=== PATIENT | female | born 1995 | race American Indian/Alaskan Native ===

== ENCOUNTER 2020-01-05 11:14 | Inpatient (IN) | payer OTHER ==
[2020-01-05 12:02] LABS: HCG Qualitative,Urine Negative (Negative)
[2020-01-05 12:07] LABS: Bilirubin,Urine NEG (Negative); Blood,Urine MOD (Negative); Color,Urine Amber (Yellow); Granular Casts,Urine 12 /LPF; Hyaline Casts,Urine 1 /LPF; Mucus,Urine 1+ /HPF; Protein,Urine >500 mg/dL (Negative)
--- NOTE | 2020-01-05 12:41 | Event Note ---
ED Screening Note Date of service: 01/05/20 Time: 12:39 ED Screening Note: This 24-year-old female presents with right lower quadrant pain and pain with defecation this morning. Last menstrual. Past week. This initial assessment/diagnostic orders/clinical plan/treatment(s) is/are subject to change based on patients health status, clinical progression and re- assessment by fellow clinical providers in the ED. Further treatment and workup at subsequent clinical providers discretion. Patient/guardian urged not to elope from the ED as their condition may be serious if not clinically assessed and managed. Initial orders include: CBC, CMP, UA, UPT, CT abdomen
--- NOTE | 2020-01-05 13:14 | Cat Scan Report ---
CT abdomen pelvis wo con INDICATION: R.L.Q. abdominal pain. COMPARISON: None TECHNIQUE: Abdominal and pelvic CT exam performed. All CT scans at this location are performed using CT dose reduction for ALARA by means of automated exposure control. FINDINGS: CT ABDOMEN and PELVIS: Lung Bases: No significant abnormality. Liver: No significant abnormality. Biliary: No significant abnormality. Spleen: No significant abnormality. Pancreas: No significant abnormality. Adrenals: No significant abnormality. Kidneys: No significant abnormality. Lymphatics: No lymphadenopathy. Vasculature: No significant abnormality. Bowel/Peritoneum: The appendix is dilated and there is periappendiceal inflammation. There is a large periappendiceal collection measuring 5.3 x 5 x 4.5 cm. There is a little focus of gas seen along the superior aspect of the collection on image 65 of series 602. Pelvis: No significant abnormality. Osseous Structures: No aggressive osseous lesion. Additional Findings: None IMPRESSION: 1. Appendicitis with a 5.3 cm periappendiceal collection concerning for abscess. Small focus of gas s een along the superior aspect of collection could be related to microrupture. Signer Name: Gorge Burton MD Signed: 01/05/2020 1:10 PM Workstation Name: [id number]
[2020-01-05] MEDS ORDERED: PIPERACIL/TAZOBACTA 4.5/NS 100 4.5 GM/100 ML VIAL IV ONE (13:31)
[2020-01-05] MEDS ORDERED: SODIUM CHLORIDE 0.9% 1000 ML 1,000 ML IV ONE (13:31)
[2020-01-05] MEDS ORDERED: MORPHINE 4 MG/1 ML INJ IV ONE (13:31)
[2020-01-05] MEDS ORDERED: ONDANSETRON 4 MG/2 ML INJ IV ONE (13:31)
[2020-01-05 13:39] LABS: Basophils % (Auto) 0.3 % (0.0-1.8); Eosinophils % (Auto) 0.3 % (0.0-4.3); Hematocrit 38.1 % (30.3-42.9); Hemoglobin 12.5 gm/dl (10.1-14.3); Lymphocytes # (Auto) 1.1 K/mm3 (1.2-5.4); Mean Corpuscular HGB Conc 33 % (30-34); Mean Corpuscular Volume 86 fl (79-97); Monocytes # (Auto) 1.2 K/mm3 (0.0-0.8); Monocytes % (Auto) 8.7 % (0.0-7.3); Platelet Count 326 K/mm3 (140-440); Red Blood Count 4.44 M/mm3 (3.65-5.03); Red Cell Distribution Width 13.3 % (13.2-15.2)
[2020-01-05] MEDS ORDERED: ACETAMINOPHEN 500 MG TAB PO ONE (13:45)
--- NOTE | 2020-01-05 14:10 | History and Physical Report ---
History of Present Illness Chief complaint: My stomach hurts History of present illness: 24 YO Female with No PMH presents to ED for evaluation. The patient states that she had experienced abdominal pain over the past 5 days with progressively worsening symptoms over the past 2 days. Patient states that her pain is currently 10/10, localized to the right lower quadrant, constant, cramping in nature, nonradiating, not worsened with exertion, not relieved with rest. Patient transported to [facility] via private vehicle for further care and evaluation of the aforementioned symptoms. Patient seen and evaluated in the emergency department. Lab and imaging studies reviewed. Patient underwent CT scan of the abdomen and pelvis which revealed evidence of acute appendicitis complicated by intra-abdominal abscess, systemic ventilatory response syndrome. Surgical team consulted in ED. Patient initiated on IV antibiotic therapy and admitted to surgical floor due to increased risk of decompensation. Intervention radiology team consulted in ED. Patient denies fever, chills, chest pain, palpitations, productive cough, skin rash, recent ill contacts, bright red blood per rectum, melena, hematuria, known exposure to COVID-19. No prior admission for review. No medication listed at time of admission for reconciliation. Past History Past Medical History: No medical history Past Surgical History: No surgical history Social history: single Family history: no significant family history Medications and Allergies Allergies Allergy/AdvReac Type Severity Reaction Status Date / Time No Known Allergies Allergy Unverified 01/05/20 11:17 Home Medications Medication Instructions Recorded Confirmed Last Taken Type No Known Home Medications [No 01/05/20 01/05/20 Unknown History Reported Home Medications] Active Meds: Active Medications Sodium Chloride (Nacl 0.9% 1000 Ml) 1,000 mls @ 999 mls/hr IV BOLUS ONE Stop: 01/05/20 14:31 Last Admin: 01/05/20 13:47 Dose: 999 mls/hr Documented by: Review of Systems Constitutional: no weight loss, no weight gain, no fever, no chills Ears, nose, mouth and throat: no ear pain, no ear discharge, no tinnitis, no decreased hearing, no nose pain Breasts: no change in shape, no swelling, no mass Cardiovascular: no chest pain, no orthopnea, no palpitations, no edema Respiratory: no cough, no cough with sputum, no excessive sputum, no shortness of breath Gastrointestinal: abdominal pain, no nausea, no vomiting, no diarrhea, no constipation, no hematemesis, no coffee ground emesis Genitourinary Female: no pelvic pain, no flank pain, no menorrhagia, no dysuria, no urinary frequency, no urgency Rectal: no pain, no incontinence, no bleeding Musculoskeletal: no neck stiffness, no neck pain, no shooting arm pain, no arm numbness/tingling, no low back pain, no shooting leg pain, no leg num bness/tingling Integumentary: no rash, no pruritis, no redness, no sores, no wounds Neurological: no head injury, no transient paralysis, no paralysis, no weakness, no parathesias, no numbness, no tingling, no seizures Psychiatric: no anxiety, no memory loss, no change in sleep habits, no sleep disturbances, no insomnia, no hypersomnia, no change in appetite, no change in libido Endocrine: no cold intolerance, no heat intolerance, no polyphagia, no excessive thirst, no polydipsia, no polyuria Hematologic/Lymphatic: no easy bruising, no easy bleeding Allergic/Immunologic: no urticaria, no allergic rhinitis, no wheezing Exam - Constitutional Vitals: Temp Pulse Resp BP Pulse Ox 99.3 F 116 H 18 136/72 98 01/05/20 12:39 01/05/20 12:39 01/05/20 13:17 01/05/20 12:39 01/05/20 13:17 General appearance: Present: mild distress - EENT Eyes: Present: PERRL ENT: hearing intact, clear oral mucosa - Neck Neck: Present: supple, normal ROM - Respiratory Respiratory effort: normal Respiratory: bilateral: CTA - Cardiovascular Heart Sounds: Present: S1 & S2. Absent: rub, click - Extremities Extremities: pulses symmetrical, No edema Peripheral Pulses: within normal limits - Abdominal General gastrointestinal: Present: soft, non-tender, non-distended, normal bowel sounds Localized gastrointestinal: tender: RLQ Female genitourinary: Present: normal - Integumentary Integumentary: Present: clear, warm, dry - Musculoskeletal Musculoskeletal: gait normal, strength equal bilaterally - Psychiatric Psychiatric: appropriate mood/affect, intact judgment & insight - Neurologic Neurologic: CNII-XII intact, moves all extremities Results - Labs CBC & Chem 7: 01/05/20 13:05 08/31/20 13:05 Labs: Abnormal lab results 08/31/20 Range/Units 13:05 WBC 13.9 H (4.5-11.0) K/mm3 Lymph % (Auto) 8.0 L (13.4-35.0) % [place] % (Auto) 8.7 H (0.0-7.3) % Lymph # 1.1 L (1.2-5.4) K/mm3 [place] # 1.2 H (0.0-0.8) K/mm3 Seg Neutrophils % 82.7 H (40.0-70.0) % Seg Neutrophils # 11.5 H (1.8-7.7) K/mm3 Assessment and Plan - Patient Problems (1) Appendicitis with abscess Current Visit: Yes Status: Acute Plan to address problem: Surgery team consulted in ED, interventional radiology team consulted in ED, CT scan abdomen and pelvis, serial abdominal exam, IV antibiotic therapy, IV fluid resuscitation therapy, bowel rest, surgical intervention as per surgical team. (2) SIRS (systemic inflammatory response syndrome) Current Visit: Yes Status: Acute Plan to address problem: CBC, CMP, chest x-ray, urinalysis, IV antibiotic therapy, supportive care (3) DVT prophylaxis Current Visit: Yes Status: Acute Plan to address problem: SCD to bilateral lower extremities while in bed, patient is ambulatory
--- NOTE | 2020-01-05 14:14 | Emergency Department Report ---
ED Abdominal Pain HPI - General Chief Complaint: Abdominal Pain Stated Complaint: ABD PAIN Time Seen by Provider: 01/05/20 13:29 Source: patient Mode of arrival: Ambulatory Limitations: No Limitations - History of Present Illness Initial Comments: This is a 24-year-old female nontoxic, well nourished in appearance, no acute signs of distress presents to the ED with c/o of fever, chills, nausea and vomiting and abdominal pain. Patient describes vomiting as food content and yellow gastric acid. Patient describes abdominal pain as cramping and aching with level of 10/10 to RLQ. Patient denies chest pain, short of breath, hemoptysis, blood in stool, headache, stiff neck, numbness or tingling. Patient denies any diarrhea or constipation. Denies any blood in stool. Patient denies any recent travels. Patient denies any allergies or significant PMH. MD Complaint: abdominal pain -: days(s) Location: RLQ Radiation: none Migration to: no migration Severity scale (0 -10): 10 Quality: cramping, aching Consistency: constant Improves With: nothing Worsens With: nothing Associated Symptoms: nausea, vomiting, fever, chills. denies: diarrhea, constipation, dysuria, hematemesis, hematochezia, melena, hematuria, anorexia, syncope - Related Data Home Medications Medication Instructions Recorded Confirmed Last Taken No Known Home Medications [No 01/05/20 01/05/20 Unknown Reported Home Medications] Allergies Allergy/AdvReac Type Severity Reaction Status Date / Time No Known Allergies Allergy Unverified 01/05/20 11:17 ED Review of Systems ROS: Stated complaint: ABD PAIN Other details as noted in HPI Constitutional: chills, fever Eyes: denies: eye pain, eye discharge, vision change ENT: denies: ear pain, throat pain Respiratory: denies: cough, shortness of breath, wheezing Cardiovascular: denies: chest pain, palpitations Endocrine: no symptoms reported Gastrointestinal: abdominal pain, nausea, vomiting. denies: diarrhea Genitourinary: denies: urgency, dysuria, discharge Musculoskeletal: denies: back pain, joint swelling, arthralgia Skin: denies: rash, lesions Neurological: denies: headache, weakness, paresthesias Psychiatric: denies: anxiety, depression Hematological/Lymphatic: denies: easy bleeding, easy bruising ED Past Medical Hx - Past Medical History Previous Medical History?: No - Surgical History Past Surgical History?: No - Social History Smoking Status: Never Smoker Substance Use Type: None - Medications Home Medications: Home Medications Medication Instructions Recorded Confirmed Last Taken Type No Known Home Medications [No 01/05/20 01/05/20 Unknown History Reported Home Medications] ED Physical Exam - General Limitations: No Limitations General appearance: alert, in no apparent distress - Head Head exam: Present: atraumatic, normocephalic - Eye Eye exam: Present: normal appearance - Neck Neck exam: Present: normal inspection, full ROM. Absent: tenderness, meningismus, lymphadenopathy - Respiratory Respiratory exam: Present: normal lung sounds bilaterally. Absent: respiratory distress, wheezes, rales, rhonchi, stridor, chest wall tenderness, accessory muscle use, decreased breath sounds, prolonged expiratory - Cardiovascular Cardiovascular Exam: Present: regular rate, normal rhythm, tachycardia, normal heart sounds. Absent: bradycardia, irregular rhythm, systolic murmur, diastolic murmur, rubs, gallop - GI/Abdominal GI/Abdominal exam: Present: soft, tenderness (RLQ), normal bowel sounds. Absent: distended, guarding, rebound, rigid, diminished bowel sounds - Extremities Exam Extremities exam: Present: normal inspection, full ROM - Back Exam Back exam: Present: normal inspection, full ROM. Absent: tenderness, CVA tenderness (R), CVA tenderness (L), muscle spasm, paraspinal tenderness, vertebral tenderness, rash noted - Neurological Exam Neurological exam: Present: alert, oriented X3, normal gait - Psychiatric Psychiatric exam: Present: normal affect, normal mood - Skin Skin exam: Present: warm, dry, intact, normal color. Absent: rash ED Course Vital Signs 01/05/20 01/05/20 01/05/20 11:20 12:39 13:17 Temperature 100.5 F H 99.3 F Pulse Rate 125 H 116 H Respiratory 16 18 18 Rate Blood Pressure 105/57 136/72 O2 Sat by Pulse 95 99 98 Oximetry - Reevaluation(s) Reevaluation #1: 01/05/20 14:12 Patient is speaking in full sentences with no signs of distress noted. - Consultations Consultation #1: 01/05/20 14:01 Patient has been consulted with Dr. Bright about patient history, physical exam, and labs/CT results and agrees for admission with IR consult. Consultation #2: 01/05/20 14:10 Patient has been consulted with Dr. Garcia about patient history, physical exam, and labs/CT results and accepts patient to services. Consultation #3: 01/05/20 14:29 Patient consulted with Francy Carranza about patient history, physical exam, and CT results and agrees to the ED plan of care and admission. ED Medical Decision Making - Lab Data Result diagrams: 01/05/20 13:05 01/05/20 13:05 Lab Results 01/05/20 01/05/20 Range/Units 13:05 Unknown WBC 13.9 H (4.5-11.0) K/mm3 RBC 4.44 (3.65-5.03) M/mm3 Hgb 12.5 (10.1-14.3) gm/dl Hct 38.1 (30.3-42.9) % MCV 86 (79-97) fl MCH 28 (28-32) pg MCHC 33 (30-34) % RDW 13.3 (13.2-15.2) % Plt Count 326 (140-440) K/mm3 Lymph % (Auto) 8.0 L (13.4-35.0) % [place] % (Auto) 8.7 H (0.0-7.3) % Eos % (Auto) 0.3 (0.0-4.3) % Baso % (Auto) 0.3 (0.0-1.8) % Lymph # 1.1 L (1.2-5.4) K/mm3 [place] # 1.2 H (0.0-0.8) K/mm3 Eos # 0.0 (0.0-0.4) K/mm3 Baso # 0.0 (0.0-0.1) K/mm3 Seg Neutrophils % 82.7 H (40.0-70.0) % Seg Neutrophils # 11.5 H (1.8-7.7) K/mm3 Urine Color [place] (Yellow) Urine Turbidity Hazy (Clear) Urine pH 6.0 (5.0-7.0) Ur Specific [place] 1.026 (1.003-1.030) Urine Protein >500 (Negative) mg/dL Urine Glucose (UA) Neg (Negative) mg/dL Urine Ketones Neg (Negative) mg/dL Urine Blood Mod (Negative) Urine Nitrite Neg (Negative) Ur Reducing Substances Not Reportable Urine Bilirubin Neg (Negative) Urine Ictotest Not Reportable Urine Urobilinogen 2.0 (<2.0) mg/dL Ur Leukocyte Esterase Neg (Negative) Urine WBC (Auto) 4.0 (0.0-6.0) /HPF Urine RBC (Auto) 9.0 (0.0-6.0) /HPF U Epithel Cells (Auto) 7.0 (0-13.0) /HPF Hyaline Casts 1 /LPF Granular Casts 12 /LPF Urine Mucus 1+ /HPF Urine HCG, Qual Negative (Negative) Lab Results 01/05/20 01/05/20 01/05/20 Range/Units 13:05 13:05 Unknown WBC 13.9 H (4.5-11.0) K/mm3 RBC 4.44 (3.65-5.03) M/mm3 Hgb 12.5 (10.1-14.3) gm/dl Hct 38.1 (30.3-42.9) % MCV 86 (79-97) fl MCH 28 (28-32) pg MCHC 33 (30-34) % RDW 13.3 (13.2-15.2) % Plt Count 326 (140-440) K/mm3 Lymph % (Auto) 8.0 L (13.4-35.0) % [place] % (Auto) 8.7 H (0.0-7.3) % Eos % (Auto) 0.3 (0.0-4.3) % Baso % (Auto) 0.3 (0.0-1.8) % Lymph # 1.1 L (1.2-5.4) K/mm3 [place] # 1.2 H (0.0-0.8) K/mm3 Eos # 0.0 (0.0-0.4) K/mm3 Baso # 0.0 (0.0-0.1) K/mm3 Seg Neutrophils % 82.7 H (40.0-70.0) % Seg Neutrophils # 11.5 H (1.8-7.7) K/mm3 Sodium 134 L (137-145) mmol/L Potassium 3.4 L (3.6-5.0) mmol/L Chloride 95.0 L (98-107) mmol/L Carbon Dioxide 24 (22-30) mmol/L Anion Gap 18 mmol/L BUN 11 (7-17) mg/dL Creatinine 1.1 (0.6-1.2) mg/dL Estimated GFR > 60 ml/min BUN/Creatinine Ratio 10 % Glucose 128 H (65-100) mg/dL Calcium 9.4 (8.4-10.2) mg/dL Total Bilirubin 0.50 (0.1-1.2) mg/dL AST 19 (5-40) units/L ALT 21 (7-56) units/L Alkaline Phosphatase 146 H (35-129) units/L Total Protein 7.9 (6.3-8.2) g/dL Albumin 3.7 L (3.9-5) g/dL Albumin/Globulin Ratio 0.9 % Urine Color [place] (Yellow) Urine Turbidity Hazy (Clear) Urine pH 6.0 (5.0-7.0) Ur Specific [place] 1.026 (1.003-1.030) Urine Protein >500 (Negative) mg/dL Urine Glucose (UA) Neg (Negative) mg/dL Urine Ketones Neg (Negative) mg/dL Urine Blood Mod (Negative) Urine Nitrite Neg (Negative) Ur Reducing Substances Not Reportable Urine Bilirubin Neg (Negative) Urine Ictotest Not Reportable Urine Urobilinogen 2.0 (<2.0) mg/dL Ur Leukocyte Esterase Neg (Negative) Urine WBC (Auto) 4.0 (0.0-6.0) /HPF Urine RBC (Auto) 9.0 (0.0-6.0) /HPF U Epithel Cells (Auto) 7.0 (0-13.0) /HPF Hyaline Casts 1 /LPF Granular Casts 12 /LPF Urine Mucus 1+ /HPF Urine HCG, Qual Negative (Negative) - Radiology Data Referring Physician: JAYLA JEAN Patient Name: DAVIN WELCH Date of : 1995 Sex: Female Report Date: 2020-01-05 Report Status: Finalized [facility] [address] [place] [address] Cat Scan Report Signed Patient: DAVIN WELCH MR#: [id number] 37 : 1995 Acct:[id number] Age/Sex: 24 / F ADM Date: 01/05/20 Loc: ED Attending Dr: Ordering Physician: ASHA SCHMIDT Date of Service: 01/05/20 Procedure(s): CT abdomen pelvis wo con Accession Number(s): [id number] cc: ASHA SCHMIDT CT abdomen pelvis wo con INDICATION: R.L.Q. abdominal pain. COMPARISON: None TECHNIQUE: Abdominal and pelvic CT exam performed. All CT scans at this location are performed using CT dose reduction for ALARA by means of automated exposure control. FINDINGS: CT ABDOMEN and PELVIS: Lung Bases: No significant abnormality. Liver: No significant abnormality. Biliary: No significant abnormality. Spleen: No significant abnormality. Pancreas: No significant abnormality. Adrenals: No significant abnormality. Kidneys: No significant abnormality. Lymphatics: No lymphadenopathy. Vasculature: No significant abnormality. Bowel/Peritoneum: The appendix is dilated and there is periappendiceal inflammation. There is a large periappendiceal collection measuring 5.3 x 5 x 4.5 cm. There is a little focus of gas seen along the superior aspect of the collection on image 65 of series 602. Pelvis: No significant abnormality. Osseous Structures: No aggressive osseous lesion. Additional Findings: None IMPRESSION: 1. Appendicitis with a 5.3 cm periappendiceal collection concerning for abscess. Small focus of gas seen along the superior aspect of collection could be related to microrupture. Signer Name: Gorge Burton MD Signed: 01/05/2020 1:10 PM Workstation Name: [id number] Transcribed By: Dictated By: Gorge Burton MD Electronically Authenticated By: Gorge Burton MD Signed Date/Time: 01/05/20 1310 DD/ 1302 TD/TT: - Medical Decision Making 24-year-old female that presents with appendicitis with possible abscess. Patient is stable and was examined by me. Patient admitted with hospitalist. Consulted with surgery. Patient placed on n.p.o. Resuscitation has been provided in the ER with Zosyn, pain medications and IV resuscitation. Patient's pain is currently under control. At time of admission, the patient does not seem toxic or ill in appearance. No acute signs of distress noted. Patient agrees to admission treatment plan of care. No further questions noted by the patient. Critical care attestation.: If time is entered above; I have spent that time in minutes in the direct care of this critically ill patient, excluding procedure time. ED Disposition Clinical Impression: Appendicitis with abscess Disposition: OP ADMIT IP TO THIS HOSP Is pt being admited?: Yes Condition: Stable Referrals: PRIMARY CARE, [Primary Care Provider] - 3-5 Days
[2020-01-05 14:17] LABS: Alanine Aminotransferase 21 units/L (7-56); Albumin 3.7 g/dL (3.9-5); BUN/Creatinine Ratio 10; Blood Urea Nitrogen 11 mg/dL (7-17); Calcium 9.4 mg/dL (8.4-10.2); Hemolysis Index 2
[2020-01-05] MEDS ORDERED: ACETAMINOPHEN 325 MG TAB PO PRN (15:00)
[2020-01-05] MEDS ORDERED: HYDROmorphone 1 MG/1 ML INJ IV PRN ×2 (15:00)
--- NOTE | 2020-01-05 15:31 | Consultation ---
History of Present Illness Consult date: 01/05/20 Reason for consult: abdominal pain Requesting physician: BOGDAN FAIR Chief complaint: Abdominal pain - History of present illness History of present illness: 24 yo F, otherwise healthy, presents to the emergency department due to significant right lower quadrant abdominal pain. CT scan evaluation shows appendicitis with probable associated abscess. General surgery was consulted. Patient reports that she began to feel abdominal pain and loss of appetite last week which was about 4 days ago. Denies any fevers but she may have had chills. Nausea is been present but no vomiting. She has had loss of appetite. She had a bowel movement this morning but it was hard. Denies any other problems. She began with generalized abdominal pain that now is focal in the right lower quadrant. Past History Past Medical History: No medical history Past Surgical History: No surgical history Social history: denies: smoking, alcohol abuse Family history: no significant family history Medications and Allergies Allergies Allergy/AdvReac Type Severity Reaction Status Date / Time No Known Allergies Allergy Unverified 01/05/20 11:17 Home Medications Medication Instructions Recorded Confirmed Last Taken Type No Known Home Medications [No 01/05/20 01/05/20 Unknown History Reported Home Medications] Active Meds: Active Medications Acetaminophen (Tylenol) 650 mg PO Q6H PRN PRN Reason: Pain, Mild (1-3) Albuterol (Proventil) 2.5 mg IH Q4HRT PRN PRN Reason: Shortness Of Breath Hydromorphone HCl (Dilaudid) 0.25 mg IV Q8HR PRN PRN Reason: Pain , Severe (7-10) Sodium Chloride (Nacl 0.9% 1000 Ml) 1,000 mls @ 125 mls/hr IV DIRECT KACEY Cefepime HCl (Cefepime/Ns 2 Gm/100 Ml) 2 gm in 100 mls @ 200 mls/hr IV Q8HR KACEY; Protocol Metronidazole (Flagyl 500 Mg/100 Ml) 500 mg in 100 mls @ 100 mls/hr IV Q8HR KACEY; Protocol Morphine Sulfate (Morphine) 2 mg IV Q4H PRN PRN Reason: Pain, Moderate (4-6) Ondansetron HCl (Zofran) 4 mg IV Q8HR PRN PRN Reason: Nausea And Vomiting Sodium Chloride (Sodium Chloride Flush Syringe 10 Ml) 10 ml IV BID KACEY Sodium Chloride (Sodium Chloride Flush Syringe 10 Ml) 10 ml IV PRN PRN PRN Reason: LINE FLUSH Review of Systems - Constitutional chills, no fever, no chronic pain - Cardiovascular no chest pain, no shortness of breath - Respiratory no cough - Gastrointestinal abdominal pain, nausea, constipation, loss of appetite, no vomiting, no BRBPR, no melena, no dyspepsia/bloating - Genitourinary Genitourinary: dysuria - Muskuloskeletal no low back pain - Integumentary no rash, no pruritis, no sores, no wounds Exam Vital Signs Temp Pulse Resp BP Pulse Ox 100.5 F H 125 H 16 105/57 95 01/05/20 11:20 01/05/20 11:20 01/05/20 11:20 01/05/20 11:20 01/05/20 11:20 - General physical appearance Positive: well developed, well nourished, no distress, no pain, other (does not appear ill) - Eyes Positive: normal occular movement - Respiratory Positive: normal expansion, normal respiratory effort, clear to auscultation - Cardiovascular Rhythm: regular (tachycardic) - Abdomen Abdomen: Present: soft, tender (only in RLQ), bowel sounds normal, masses (in RLQ). Absent: distended, guarding, rigid, wound, surgical scars - Integumentary no rash, no growths, no abnormal pigmentation - Neurologic Neurologic: alert and oriented to time, place and person, motor strength and sensation are grossly intact - Psychiatric Psychiatric: appropriate mood/affect, intact judgment & insight, cooperative Results - Labs 01/05/20 13:05 01/05/20 13:05 Abnormal lab results 01/05/20 01/05/20 Range/Units 13:05 13:05 WBC 13.9 H (4.5-11.0) K/mm3 Lymph % (Auto) 8.0 L (13.4-35.0) % [place] % (Auto) 8.7 H (0.0-7.3) % Lymph # 1.1 L (1.2-5.4) K/mm3 Evans # 1.2 H (0.0-0.8) K/mm3 Seg Neutrophils % 82.7 H (40.0-70.0) % Seg Neutrophils # 11.5 H (1.8-7.7) K/mm3 Sodium 134 L (137-145) mmol/L Potassium 3.4 L (3.6-5.0) mmol/L Chloride 95.0 L (98-107) mmol/L Glucose 128 H (65-100) mg/dL Alkaline Phosphatase 146 H (35-129) units/L Albumin 3.7 L (3.9-5) g/dL Diabetes panel 01/05/20 Range/Units 13:05 Sodium 134 L (137-145) mmol/L Potassium 3.4 L (3.6-5.0) mmol/L Chloride 95.0 L (98-107) mmol/L Carbon Dioxide 24 (22-30) mmol/L BUN 11 (7-17) mg/dL Creatinine 1.1 (0.6-1.2) mg/dL Glucose 128 H (65-100) mg/dL Calcium 9.4 (8.4-10.2) mg/dL AST 19 (5-40) units/L ALT 21 (7-56) units/L Alkaline Phosphatase 146 H (35-129) units/L Total Protein 7.9 (6.3-8.2) g/dL Albumin 3.7 L (3.9-5) g/dL Calcium panel 01/05/20 Range/Units 13:05 Calcium 9.4 (8.4-10.2) mg/dL Albumin 3.7 L (3.9-5) g/dL Pituitary panel 01/05/20 Range/Units 13:05 Sodium 134 L (137-145) mmol/L Potassium 3.4 L (3.6-5.0) mmol/L Chloride 95.0 L (98-107) mmol/L Carbon Dioxide 24 (22-30) mmol/L BUN 11 (7-17) mg/dL Creatinine 1.1 (0.6-1.2) mg/dL Glucose 128 H (65-100) mg/dL Calcium 9.4 (8.4-10.2) mg/dL Adrenal panel 01/05/20 Range/Units 13:05 Sodium 134 L (137-145) mmol/L Potassium 3.4 L (3.6-5.0) mmol/L Chloride 95.0 L (98-107) mmol/L Carbon Dioxide 24 (22-30) mmol/L BUN 11 (7-17) mg/dL Creatinine 1.1 (0.6-1.2) mg/dL Glucose 128 H (65-100) mg/dL Calcium 9.4 (8.4-10.2) mg/dL Total Bilirubin 0.50 (0.1-1.2) mg/dL AST 19 (5-40) units/L ALT 21 (7-56) units/L Alkaline Phosphatase 146 H (35-129) units/L Total Protein 7.9 (6.3-8.2) g/dL Albumin 3.7 L (3.9-5) g/dL - Imaging CT scan - abdomen: report reviewed, image reviewed CT scan - pelvis: report reviewed, image reviewed Assessment and Plan - Patient Problems (1) Appendicitis with abscess Current Visit: Yes Status: Acute Plan to address problem: Pt stable. History, exam, CT scan are consistent with appendicitis that has been present for greater than 4 days and now has an associated developing abscess. As patient is stable, would manage this conservatively. Recommend IV fluid resuscitation, IV antibiotics, and repeat CT scan on Sunday. Ho pefully, by that time, a well-defined abscess has formed and interventional radiology can be consulted for a drain placement. Once the infection has resolved, then we will look to a possible interval appendectomy in 6 weeks. We will follow along. Please call with any questions. Time=30min
[2020-01-05] MEDS ORDERED: ALBUTEROL 2.5 MG/3 ML NEBU IH PRN (16:00)
[2020-01-05] MEDS: SODIUM CHLORIDE 0.9% 1000 ML 1,000 ML IV SCH (16:42)
--- NOTE | 2020-01-05 20:28 | Event Note ---
Date: 01/05/[address] of the abdomen and pelvis. There is a collection in the right lower quadrant which likely represents perforated appendicitis, but without IV contrast, this is incompletely evaluated. Not adequate imaging for CT guided drainage. Ordered CT abdomen and pelvis with oral and IV contrast for further evaluation.
[2020-01-05] MEDS: CEFEPIME/NS 2 GM/100 ML 2 GM/100 ML BAG IV SCH (22:15)
[2020-01-05] MEDS: metroNIDAZOLE/NS 500 MG/100 ML 500 MG/100 ML BAG IV SCH (22:18)
[2020-01-05] MEDS: MORPHINE 2 MG/1 ML INJ IV PRN (22:52)
[2020-01-05] MEDS: ACETAMINOPHEN 325 MG TAB PO PRN (23:05)
[2020-01-06] MEDS: MORPHINE 2 MG/1 ML INJ IV PRN ×3 (04:03→14:39)
[2020-01-06] MEDS: SODIUM CHLORIDE 0.9% 1000 ML 1,000 ML IV SCH ×2 (04:12→21:50)
[2020-01-06] MEDS: CEFEPIME/NS 2 GM/100 ML 2 GM/100 ML BAG IV SCH ×3 (05:39→21:46)
[2020-01-06] MEDS: metroNIDAZOLE/NS 500 MG/100 ML 500 MG/100 ML BAG IV SCH ×3 (05:40→21:46)
[2020-01-06 06:01] LABS: Basophils % (Auto) 0.1 % (0.0-1.8); Eosinophils # (Auto) 0.1 K/mm3 (0.0-0.4); Eosinophils % (Auto) 0.6 % (0.0-4.3); Hemoglobin 10.9 gm/dl (10.1-14.3); Lymphocytes # (Auto) 0.7 K/mm3 (1.2-5.4); Lymphocytes % (Auto) 5.9 % (13.4-35.0); Mean Corpuscular HGB Conc 33 % (30-34); Mean Corpuscular Volume 86 fl (79-97); Monocytes # (Auto) 1.1 K/mm3 (0.0-0.8); Monocytes % (Auto) 10.1 % (0.0-7.3); Platelet Count 261 K/mm3 (140-440); Red Blood Count 3.83 M/mm3 (3.65-5.03); Red Cell Distribution Width 13.5 % (13.2-15.2)
[2020-01-06 06:18] LABS: BUN/Creatinine Ratio 10; Blood Urea Nitrogen 10 mg/dL (7-17); Calcium 8.5 mg/dL (8.4-10.2); Hemolysis Index 5
[2020-01-06] MEDS: ACETAMINOPHEN 325 MG TAB PO PRN ×3 (07:46→21:47)
--- NOTE | 2020-01-06 11:13 | Progress Note ---
Assessment and Plan (1) Appendicitis with abscess Current Visit: Yes Status: Acute Plan to address problem: Pt stable. History, exam, CT scan are consistent with appendicitis that has been present for greater than 4 days and now has an associated developing absces s. As patient is stable, would manage this conservatively. Plan: 1. IV fluid resuscitation 2. IV antibiotics 3. repeat CT scan A/P with oral and IV contrast on Sunday to evaluate if collection is better organized and amenable to drainage 4. IR consulted - Dr. Jarvis's note reviewed and recs appreciated 5. prn pain control 6. may start clear liquid diet, NPO p MN tonight Once the infection has resolved, then we will look to a possible interval appendectomy in 6 weeks. Plan reviewed with patient. We will follow along. Please call with any questions. Subjective Date of service: 01/06/20 Narrative: Pt seen and examined. States she is thirsty. No n/v. Moderate abdominal pain localized to RLQ and is controlled with pain medication. +fever of 101. Objective Vital Signs - 12hr 01/06/20 01/06/20 01/06/20 02:22 02:39 04:14 Temperature 1011 F H 99.1 F Pulse Rate 106 H 102 H Respiratory 18 18 Rate Blood Pressure 111/59 Blood Pressure 110/61 [Left] O2 Sat by Pulse 98 Oximetry 01/06/20 07:39 Temperature 102.9 F H Pulse Rate 106 H Respiratory 18 Rate Blood Pressure 95/46 Blood Pressure [Left] O2 Sat by Pulse 99 Oximetry - General physical appearance Narrative Exam: Gen: AAOx3. NAD CV: S1, S2+ Resp: even and unlabored Abd: soft, ND, point TTP in RLQ with voluntary guarding. No rebound or rigidity. Ext: no c/c/e - Labs 01/06/20 05:46 01/06/20 05:46 Diabetes panel 01/05/20 01/06/20 Range/Units 13:05 05:46 Sodium 134 L 140 (137-145) mmol/L Potassium 3.4 L 3.7 (3.6-5.0) mmol/L Chloride 95.0 L 104.3 (98-107) mmol/L Carbon Dioxide 24 21 L (22-30) mmol/L BUN 11 10 (7-17) mg/dL Creatinine 1.1 1.0 (0.6-1.2) mg/dL Glucose 128 H 94 (65-100) mg/dL Calcium 9.4 8.5 (8.4-10.2) mg/dL AST 19 (5-40) units/L ALT 21 (7-56) units/L Alkaline Phosphatase 146 H (35-129) units/L Total Protein 7.9 (6.3-8.2) g/dL Albumin 3.7 L (3.9-5) g/dL Calcium panel 01/05/20 01/06/20 Range/Units 13:05 05:46 Calcium 9.4 8.5 (8.4-10.2) mg/dL Albumin 3.7 L (3.9-5) g/dL Pituitary panel 01/05/20 01/06/20 Range/Units 13:05 05:46 Sodium 134 L 140 (137-145) mmol/L Potassium 3.4 L 3.7 (3.6-5.0) mmol/L Chloride 95.0 L 104.3 (98-107) mmol/L Carbon Dioxide 24 21 L (22-30) mmol/L BUN 11 10 (7-17) mg/dL Creatinine 1.1 1.0 (0.6-1.2) mg/dL Glucose 128 H 94 (65-100) mg/dL Calcium 9.4 8.5 (8.4-10.2) mg/dL Adrenal panel 01/05/20 01/06/20 Range/Units 13:05 05:46 Sodium 134 L 140 (137-145) mmol/L Potassium 3.4 L 3.7 (3.6-5.0) mmol/L Chloride 95.0 L 104.3 (98-107) mmol/L Carbon Dioxide 24 21 L (22-30) mmol/L BUN 11 10 (7-17) mg/dL Creatinine 1.1 1.0 (0.6-1.2) mg/dL Glucose 128 H 94 (65-100) mg/dL Calcium 9.4 8.5 (8.4-10.2) mg/dL Total Bilirubin 0.50 (0.1-1.2) mg/dL AST 19 (5-40) units/L ALT 21 (7-56) units/L Alkaline Phosphatase 146 H (35-129) units/L Total Protein 7.9 (6.3-8.2) g/dL Albumin 3.7 L (3.9-5) g/dL
--- NOTE | 2020-01-06 16:55 | Progress Note ---
Assessment and Plan Assessment and plan: --Appendicitis with abscess Current Visit: Yes Status: Acute Plan to address problem: Clear liquids Clear liquids, IV antibiotics, IV fluids, surgery following IR evaluation noted and appreciated Surgery planning to repeat CT abdomen tomorrow Once the infection has resolved, possible interval appendectomy 6 weeks --Febrile illness: Current Visit: Yes Status: Acute Plan to address problem: Clear liquids Fever secondary to sepsis due to appendicitis and possible abscess --Sepsis secondary to acute appendicitis/abscess Current Visit: Yes Status: Acute Plan to address problem: Clear liquids Fever, tachycardia, leukocytosis, and appendicitis/abscess Continue IV fluids antibiotics follow cultures Clear liquids per surgery, --DVT prophylaxis; SCDs, Closely monitor the patient and adjust management as needed Plan of care reviewed with the patient and her nurse Door Liner Helper recommendations noted and appreciated History Interval history: I have seen and examined the patient at the bedside Patient's chart and medications reviewed Admitted with possible appendicitis with abscess Surgery and IR evaluated the patient Patient complains of some abdominal pain Vital signs noted Hospitalist Physical - Constitutional Vitals: Temp Pulse Resp BP Pulse Ox 103.1 F H 87 18 131/63 99 01/06/20 16:40 01/06/20 11:33 01/06/20 16:40 01/06/20 16:40 01/06/20 15:12 General appearance: Present: mild distress, well-nourished - EENT Eyes: Present: PERRL, EOM intact - Neck Neck: Present: supple, normal ROM - Respiratory Respiratory effort: normal Respiratory: bilateral: diminished, negative: rales, rhonchi, wheezing - Cardiovascular Rhythm: regular Heart Sounds: Present: S1 & S2 - Extremities Extremities: no ischemia, No edema - Abdominal General gastrointestinal: soft, tender (Right lower quadrant, no guarding no rigidity), normal bowel sounds - Integumentary Integumentary: Present: clear, warm - Psychiatric Psychiatric: appropriate mood/affect, cooperative - Neurologic Neurologic: CNII-XII intact, moves all extremities Results - Labs CBC & Chem 7: 01/07/20 05:49 01/06/20 05:46 Labs: Laboratory Last Values WBC 11.2 K/mm3 (4.5-11.0) H 01/06/20 05:46 RBC 3.83 M/mm3 (3.65-5.03) 01/06/20 05:46 Hgb 10.9 gm/dl (10.1-14.3) 01/06/20 05:46 Hct 33.0 % (30.3-42.9) 01/06/20 05:46 MCV 86 fl (79-97) 01/06/20 05:46 MCH 28 pg (28-32) 01/06/20 05:46 MCHC 33 % (30-34) 01/06/20 05:46 RDW 13.5 % (13.2-15.2) 01/06/20 05:46 Plt Count 261 K/mm3 (140-440) 01/06/20 05:46 Lymph % (Auto) 5.9 % (13.4-35.0) L 01/06/20 05:46 [place] % (Auto) 10.1 % (0.0-7.3) H 01/06/20 05:46 Eos % (Auto) 0.6 % (0.0-4.3) 01/06/20 05:46 Baso % (Auto) 0.1 % (0.0-1.8) 01/06/20 05:46 Lymph # 0.7 K/mm3 (1.2-5.4) L 01/06/20 05:46 [place] # 1.1 K/mm3 (0.0-0.8) H 01/06/20 05:46 Eos # 0.1 K/mm3 (0.0-0.4) 01/06/20 05:46 Baso # 0.0 K/mm3 (0.0-0.1) 01/06/20 05:46 Seg Neutrophils % 83.3 % (40.0-70.0) H 01/06/20 05:46 Seg Neutrophils # 9.3 K/mm3 (1.8-7.7) H 01/06/20 05:46 Sodium 140 mmol/L (137-145) 01/06/20 05:46 Potassium 3.7 mmol/L (3.6-5.0) 01/06/20 05:46 Chloride 104.3 mmol/L (98-107) 01/06/20 05:46 Carbon Dioxide 21 mmol/L (22-30) L 01/06/20 05:46 Anion Gap 18 mmol/L 01/06/20 05:46 BUN 10 mg/dL (7-17) 01/06/20 05:46 Creatinine 1.0 mg/dL (0.6-1.2) 01/06/20 05:46 Estimated GFR > 60 ml/min 01/06/20 05:46 BUN/Creatinine Ratio 10 % 01/06/20 05:46 Glucose 94 mg/dL (65-100) 01/06/20 05:46 Calcium 8.5 mg/dL (8.4-10.2) 01/06/20 05:46 Total Bilirubin 0.50 mg/dL (0.1-1.2) 01/05/20 13:05 AST 19 units/L (5-40) 01/05/20 13:05 ALT 21 units/L (7-56) 01/05/20 13:05 Alkaline Phosphatase 146 units/L (35-129) H 01/05/20 13:05 Total Protein 7.9 g/dL (6.3-8.2) 01/05/20 13:05 Albumin 3.7 g/dL (3.9-5) L 01/05/20 13:05 Albumin/Globulin Ratio 0.9 % 01/05/20 13:05 Urine Color Tessy (Yellow) 01/05/20 Unknown Urine Turbidity Hazy (Clear) 01/05/20 Unknown Urine pH 6.0 (5.0-7.0) 01/05/20 Unknown Ur Specific [place] 1.026 (1.003-1.030) 01/05/20 Unknown Urine Protein >500 mg/dL (Negative) 01/05/20 Unknown Urine Glucose (UA) Neg mg/dL (Negative) 01/05/20 Unknown Urine Ketones Neg mg/dL (Negative) 01/05/20 Unknown Urine Blood Mod (Negative) 01/05/20 Unknown Urine Nitrite Neg (Negative) 01/05/20 Unknown Ur Reducing Substances Not Reportable 01/05/20 Unknown Urine Bilirubin Neg (Negative) 01/05/20 Unknown Urine Ictotest Not Reportable 01/05/20 Unknown Urine Urobilinogen 2.0 mg/dL (<2.0) 01/05/20 Unknown Ur Leukocyte Esterase Neg (Negative) 01/05/20 Unknown Urine WBC (Auto) 4.0 /HPF (0.0-6.0) 01/05/20 Unknown Urine RBC (Auto) 9.0 /HPF (0.0-6.0) 01/05/20 Unknown U Epithel Cells (Auto) 7.0 /HPF (0-13.0) 01/05/20 Unknown Hyaline Casts 1 /LPF 01/05/20 Unknown Granular Casts 12 /LPF 01/05/20 Unknown Urine Mucus 1+ /HPF 01/05/20 Unknown Urine HCG, Qual Negative (Negative) 01/05/20 Unknown Bel[place]án/IV: Voiding Method Toilet IV Catheter Type [Left Peripheral IV Antecubital] Active Medications - Current Medications Current Medications: Generic Name Dose Route Start Last Admin Trade Name Freq PRN Reason Stop Dose Admin Acetaminophen 650 mg 01/05/20 15:00 01/06/20 07:46 Tylenol PO 650 mg Q6H PRN Administration Pain, Mild (1-3) Albuterol 2.5 mg 01/05/20 16:00 Proventil IH Q4HRT PRN Shortness Of Breath Hydromorphone HCl 0.25 mg 01/05/20 15:00 Dilaudid IV Q8HR PRN Pain , Severe (7-10) Sodium Chloride 1,000 mls @ 125 mls/hr 01/05/20 15:00 01/06/20 04:12 Nacl 0.9% 1000 Ml IV 125 mls/hr DIRECT KACEY Administration Cefepime HCl 2 gm in 100 mls @ 200 mls/hr 01/05/20 22:00 01/06/20 13:24 Cefepime/Ns 2 Gm/100 Ml IV 200 mls/hr Q8HR KACEY Administration Protocol Metronidazole 500 mg in 100 mls @ 100 mls/hr 01/05/20 22:00 01/06/20 13:24 Flagyl 500 Mg/100 Ml IV 100 mls/hr Q8HR KACEY Administration Protocol Morphine Sulfate 2 mg 01/05/20 14:20 01/06/20 14:39 Morphine IV 2 mg Q4H PRN Administration Pain, Moderate (4-6) Ondansetron HCl 4 mg 01/05/20 15:00 Zofran IV Q8HR PRN Nausea And Vomiting Sodium Chloride 10 ml 01/05/20 22:00 01/06/20 13:26 Sodium Chloride Flush Syringe 10 Ml IV Not Given BID KACEY Sodium Chloride 10 ml 01/05/20 15:00 Sodium Chloride Flush Syringe 10 Ml IV PRN PRN LINE FLUSH Nutrition/Malnutrition Assess - Dietary Evaluation Nutrition/Malnutrition Findings: Nutrition Notes Start: 01/06/20 10:31 Freq: Status: Active Protocol: Document 01/06/20 10:31 AB (Rec: 01/06/20 10:32 AB [email or web address]) Co-Sign 01/06/20 10:31 NHALL Nutrition Notes Need for Assessment generated from: word processing operator Initial or Follow up Brief Note Subjective/Other Information Pt screened for skin risk however, Dez score is 21. Will assess upon further consult or LOS
[2020-01-07] MEDS: ACETAMINOPHEN 325 MG TAB PO PRN ×2 (05:03→15:25)
[2020-01-07] MEDS: ONDANSETRON 4 MG/2 ML INJ IV PRN ×2 (05:07→15:25)
[2020-01-07 06:12] LABS: Basophils % (Auto) 0.3 % (0.0-1.8); Eosinophils # (Auto) 0.1 K/mm3 (0.0-0.4); Eosinophils % (Auto) 0.6 % (0.0-4.3); Hematocrit 32.3 % (30.3-42.9); Hemoglobin 10.9 gm/dl (10.1-14.3); Lymphocytes # (Auto) 0.6 K/mm3 (1.2-5.4); Lymphocytes % (Auto) 6.1 % (13.4-35.0); Mean Corpuscular HGB Conc 34 % (30-34); Mean Corpuscular Volume 87 fl (79-97); Monocytes # (Auto) 1.1 K/mm3 (0.0-0.8); Monocytes % (Auto) 10.5 % (0.0-7.3); Platelet Count 231 K/mm3 (140-440); Red Blood Count 3.72 M/mm3 (3.65-5.03); Red Cell Distribution Width 13.6 % (13.2-15.2)
--- NOTE | 2020-01-07 10:58 | Cat Scan Report ---
CT ABDOMEN AND PELVIS WITH CONTRAST HISTORY: MAIN COMPARISON: None. TECHNIQUE: Axial CT images were obtained through the abdomen and pelvis after 100 cc of Omnipaque 300 intravenously. Sagittal and coronal reformatted images. All CT scans at this location are performed using CT dose reduction for ALARA by means of automated exposure control. FINDINGS: CT ABDOMEN: Lung Bases: Clear. Liver: No significant abnormality. Biliary: No significant abnormality. Spleen: No significant abnormality. Unenlarged. Pancreas: No significant abnormality. Adrenals: No significant abnormality. Kidneys: No significant abnormality. Lymphatics: No lymphadenopathy. Vasculature: No significant abnormality. Bowel/Peritoneum: A complex, septated, peripherally enhancing collection is identified in the right a nterior pelvis measuring 8.1 x 5.2 cm in axial plane. This presumably represents a periappendiceal ab scess and appears slightly larger than the previous noncontrast examination in which this collection measured 5.5 x 3.9 cm. No new collection suspicious for abscess. The bowel loops are normal caliber a nd wall thickness. No evidence for obstruction. Scattered fluid levels throughout the abdomen probabl y represent a mild diffuse ileus. No free air. CT PELVIS: : No significant abnormality. Osseous Structures: No significant abnormality. Additional Findings: None IMPRESSION: Persistent right lower quadrant fluid collection suspicious for a periappendiceal abscess. See above. Signer Name: Chance Olmedo Jr, MD Signed: 01/07/2020 10:53 AM Workstation Name: [id number]
[2020-01-07] MEDS: CEFEPIME/NS 2 GM/100 ML 2 GM/100 ML BAG IV SCH ×5 (14:23→21:56)
[2020-01-07] MEDS: metroNIDAZOLE/NS 500 MG/100 ML 500 MG/100 ML BAG IV SCH ×4 (14:25→22:27)
--- NOTE | 2020-01-07 17:54 | Progress Note ---
Assessment and Plan Assessment and plan: --Appendicitis with abscess Current Visit: Yes Status: Acute Plan to address problem: Clear liquids Clear liquids, IV antibiotics, IV fluids, surgery following IR evaluation noted and appreciated Repeat CT abdomen and pelvis with contrast; persistent RLQ fluid collection periappendiceal abscess IR planning draining the abscess tomorrow. N.p.o. from midnight 01/05/2020 CT abdomen and pelvis W0; Appendicitis without 5.3 cm periappendiceal collection concerning for abscess Small focus of gas seen along the superior aspect of collection related to micro rupture 01/07/2020; CT abdomen and pelvis with contrast; Persistent right lower quadrant fluid collection suspicious for the ana- appendiceal abscess. --Febrile illness: Current Visit: Yes Status: Acute Plan to address problem: Clear liquids Fever secondary to sepsis due to appendiceal abscess --Sepsis secondary to acute appendiceal abscess Current Visit: Yes Status: Acute Plan to address problem: Clear liquids Fever, tachycardia, leukocytosis, and appendicitis/abscess Continue IV fluids antibiotics follow cultures Clear liquids per surgery, --DVT prophylaxis; SCDs, N.p.o. midnight, possible IR procedure tomorrow [employer] recommendations noted Plan of care reviewed with the patient and her nurse History Interval history: I have seen and examined the patient at the bedside Patient's chart, current medications, consultants reports reviewed Patient feels slightly better, Had second CT abdomen and pelvis with contrast today Vital signs noted Hospitalist Physical - Constitutional Vitals: Temp Pulse Resp BP Pulse Ox 98.5 F 95 H 16 107/63 98 01/07/20 15:25 01/07/20 15:25 01/07/20 15:25 01/07/20 15:25 01/07/20 15:25 General appearance: Present: mild distress, well-nourished - EENT Eyes: Present: PERRL, EOM intact, scleral icterus - Neck Neck: Present: supple, normal ROM - Respiratory Respiratory effort: normal Respiratory: bilateral: diminished, negative: rales, rhonchi, wheezing - Cardiovascular Rhythm: regular Heart Sounds: Present: S1 & S2 - Extremities Extremities: no ischemia, No edema - Abdominal General gastrointestinal: soft, tender (Right lower quadrant no guarding no rigidity), non-distended, hypoactive bowel sounds - Integumentary Integumentary: Present: clear, warm - Psychiatric Psychiatric: appropriate mood/affect, cooperative - Neurologic Neurologic: CNII-XII intact, moves all extremities Results - Labs CBC & Chem 7: 01/07/20 05:49 01/06/20 05:46 Labs: Laboratory Last Values WBC 10.6 K/mm3 (4.5-11.0) 01/07/20 05:49 RBC 3.72 M/mm3 (3.65-5.03) 01/07/20 05:49 Hgb 10.9 gm/dl (10.1-14.3) 01/07/20 05:49 Hct 32.3 % (30.3-42.9) 01/07/20 05:49 MCV 87 fl (79-97) 01/07/20 05:49 MCH 29 pg (28-32) 01/07/20 05:49 MCHC 34 % (30-34) 01/07/20 05:49 RDW 13.6 % (13.2-15.2) 01/07/20 05:49 Plt Count 231 K/mm3 (140-440) 01/07/20 05:49 Lymph % (Auto) 6.1 % (13.4-35.0) L 01/07/20 05:49 Ness % (Auto) 10.5 % (0.0-7.3) H 01/07/20 05:49 Eos % (Auto) 0.6 % (0.0-4.3) 01/07/20 05:49 Baso % (Auto) 0.3 % (0.0-1.8) 01/07/20 05:49 Lymph # 0.6 K/mm3 (1.2-5.4) L 01/07/20 05:49 Ness # 1.1 K/mm3 (0.0-0.8) H 01/07/20 05:49 Eos # 0.1 K/mm3 (0.0-0.4) 01/07/20 05:49 Baso # 0.0 K/mm3 (0.0-0.1) 01/07/20 05:49 Seg Neutrophils % 82.5 % (40.0-70.0) H 01/07/20 05:49 Seg Neutrophils # 8.8 K/mm3 (1.8-7.7) H 01/07/20 05:49 Sodium 140 mmol/L (137-145) 01/06/20 05:46 Potassium 3.7 mmol/L (3.6-5.0) 01/06/20 05:46 Chloride 104.3 mmol/L (98-107) 01/06/20 05:46 Carbon Dioxide 21 mmol/L (22-30) L 01/06/20 05:46 Anion Gap 18 mmol/L 01/06/20 05:46 BUN 10 mg/dL (7-17) 01/06/20 05:46 Creatinine 1.0 mg/dL (0.6-1.2) 01/06/20 05:46 Estimated GFR > 60 ml/min 01/06/20 05:46 BUN/Creatinine Ratio 10 % 01/06/20 05:46 Glucose 94 mg/dL (65-100) 01/06/20 05:46 Calcium 8.5 mg/dL (8.4-10.2) 01/06/20 05:46 Total Bilirubin 0.50 mg/dL (0.1-1.2) 01/05/20 13:05 AST 19 units/L (5-40) 01/05/20 13:05 ALT 21 units/L (7-56) 01/05/20 13:05 Alkaline Phosphatase 146 units/L (35-129) H 01/05/20 13:05 Total Protein 7.9 g/dL (6.3-8.2) 01/05/20 13:05 Albumin 3.7 g/dL (3.9-5) L 01/05/20 13:05 Albumin/Globulin Ratio 0.9 % 01/05/20 13:05 Urine Color Tessy (Yellow) 01/05/20 Unknown Urine Turbidity Hazy (Clear) 01/05/20 Unknown Urine pH 6.0 (5.0-7.0) 01/05/20 Unknown Ur Specific [place] 1.026 (1.003-1.030) 01/05/20 Unknown Urine Protein >500 mg/dL (Negative) 01/05/20 Unknown Urine Glucose (UA) Neg mg/dL (Negative) 01/05/20 Unknown Urine Ketones Neg mg/dL (Negative) 01/05/20 Unknown Urine Blood Mod (Negative) 01/05/20 Unknown Urine Nitrite Neg (Negative) 01/05/20 Unknown Ur Reducing Substances Not Reportable 01/05/20 Unknown Urine Bilirubin Neg (Negative) 01/05/20 Unknown Urine Ictotest Not Reportable 01/05/20 Unknown Urine Urobilinogen 2.0 mg/dL (<2.0) 01/05/20 Unknown Ur Leukocyte Esterase Neg (Negative) 01/05/20 Unknown Urine WBC (Auto) 4.0 /HPF (0.0-6.0) 01/05/20 Unknown Urine RBC (Auto) 9.0 /HPF (0.0-6.0) 01/05/20 Unknown U Epithel Cells (Auto) 7.0 /HPF (0-13.0) 01/05/20 Unknown Hyaline Casts 1 /LPF 01/05/20 Unknown Granular Casts 12 /LPF 01/05/20 Unknown Urine Mucus 1+ /HPF 01/05/20 Unknown Urine HCG, Qual Negative (Negative) 01/05/20 Unknown Microbiology: Microbiology 01/06/20 19:28 Peripheral/Venous Blood Culture - Preliminary Culture in Progress 01/06/20 19:28 Peripheral/Venous Blood Culture - Preliminary Culture in Progress Beltrán/IV: Voiding Method Toilet IV Catheter Type [Left Peripheral IV Antecubital] Active Medications - Current Medications Current Medications: Generic Name Dose Route Start Last Admin Trade Name Freq PRN Reason Stop Dose Admin Acetaminophen 650 mg 01/06/20 17:05 01/07/20 15:25 Tylenol PO 650 mg Q4H PRN Administration Pain, Mild (1-3) Albuterol 2.5 mg 01/05/20 16:00 Proventil IH Q4HRT PRN Shortness Of Breath Hydromorphone HCl 0.25 mg 01/05/20 15:00 Dilaudid IV Q8HR PRN Pain , Severe (7-10) Sodium Chloride 1,000 mls @ 125 mls/hr 01/05/20 15:00 01/06/20 21:50 Nacl 0.9% 1000 Ml IV 125 mls/hr DIRECT KACEY Administration Cefepime HCl 2 gm in 100 mls @ 200 mls/hr 01/05/20 22:00 01/07/20 14:23 Cefepime/Ns 2 Gm/100 Ml IV 200 mls/hr Q8HR KACEY Administration Protocol Metronidazole 500 mg in 100 mls @ 100 mls/hr 01/05/20 22:00 01/07/20 15:51 Flagyl 500 Mg/100 Ml IV Not Given Q8HR [facility] Protocol Morphine Sulfate 2 mg 01/05/20 14:20 01/06/20 14:39 Morphine IV 2 mg Q4H PRN Administration Pain, Moderate (4-6) Ondansetron HCl 4 mg 01/05/20 15:00 01/07/20 15:25 Zofran IV 4 mg Q8HR PRN Administration Nausea And Vomiting Sodium Chloride 10 ml 01/05/20 22:00 01/07/20 14:25 Sodium Chloride Flush Syringe 10 Ml IV 10 ml BID KACEY Administration Sodium Chloride 10 ml 01/05/20 15:00 Sodium Chloride Flush Syringe 10 Ml IV PRN PRN LINE FLUSH Nutrition/Malnutrition Assess - Dietary Evaluation Nutrition/Malnutrition Findings: Nutrition Notes Start: 01/06/20 10:31 Freq: Status: Active Protocol: Document 01/06/20 10:31 AB (Rec: 01/06/20 10:32 AB [email or web address]) Co-Sign 01/06/20 10:31 NHALL Nutrition Notes Need for Assessment generated from: certified registered nurse practitioner Initial or Follow up Brief Note Subjective/Other Information Pt screened for skin risk however, Dez score is 21. Will assess upon further consult or LOS
--- NOTE | 2020-01-07 18:03 | Progress Note ---
Assessment and Plan (1) Appendicitis with abscess Current Visit: Yes Status: Acute Plan to address problem: Pt stable. Febrile Ct scan A/P / - well defined abscess RLQ and pelvis consistent with perforated appendicitis Plan: 1. IV fluid resuscitation 2. IV antibiotics 3. clear liquid diet, NPO p MN tonight 4. IR consulted - Discussed repeat CT results with Dr. Jarvis. Pt set up for drain placement in am 5. prn pain control Once the infection has resolved, then we will look to a possible interval appendectomy in 6 weeks. Plan discussed with patient and her brother and sister over the telephone at her request. All questions answered. We will follow along. Please call with any questions. Subjective Date of service: 01/07/20 Narrative: Pt seen and examined. c/o mild RLQ/pelvic pain. Febrile. No n/v. Tolerating clear liquids. Objective Vital Signs - 12hr 01/07/20 01/07/20 01/07/20 07:17 11:19 15:25 Temperature 99.9 F H 99.1 F 98.5 F Pulse Rate 92 H 87 95 H Respiratory 20 16 16 Rate Blood Pressure 101/56 104/63 107/63 O2 Sat by Pulse 93 95 98 Oximetry - General physical appearance Narrative Exam: Gen; AAOx3. NAD CV: S1, S2+ Resp: even and unlabored Abd: soft, mild TTP in RLQ/groin area. No r/r/g Ext: no c/c/e - Labs 01/07/20 05:49 01/06/20 05:46
[2020-01-07] MEDS: SODIUM CHLORIDE 0.9% 1000 ML 1,000 ML IV SCH (19:36)
[2020-01-08] MEDS: metroNIDAZOLE/NS 500 MG/100 ML 500 MG/100 ML BAG IV SCH ×3 (05:04→23:35)
[2020-01-08] MEDS: CEFEPIME/NS 2 GM/100 ML 2 GM/100 ML BAG IV SCH ×3 (06:13→22:15)
[2020-01-08] MEDS ORDERED: MIDAZOLAM 5 MG/5 ML INJ MDV IV NR (07:29)
[2020-01-08] MEDS ORDERED: fentaNYL 100 MCG/2 ML INJ IV NR (07:31)
[2020-01-08 08:54] LABS: INR 1.22 (0.87-1.13)
[2020-01-08] MEDS: SODIUM CHLORIDE 0.9% 1000 ML 1,000 ML IV SCH (10:11)
[2020-01-08] MEDS ORDERED: fentaNYL 100 MCG/2 ML INJ ONE (11:40)
[2020-01-08] MEDS ORDERED: MIDAZOLAM 5 MG/5 ML INJ MDV IV ONE (11:40)
--- NOTE | 2020-01-08 13:18 | Procedure Note ---
Date of procedure: 01/08/20 Pre-op diagnosis: Appendiceal abscess Post-op diagnosis: same Procedure: CT-guided placement of 10 Nepali drain, 80 mL's of purulent fluid aspirated and sent for laboratory analysis Anesthesia: local Surgeon: LATANYA MCDONALD Estimated blood loss: none Specimen disposition: to lab Condition: stable Disposition: floor
--- NOTE | 2020-01-08 14:26 | Progress Note ---
Assessment and Plan (1) Appendicitis with abscess Current Visit: Yes Status: Acute Plan to address problem: Pt stable. Febrile Ct scan A/P 01/06 - well defined abscess RLQ and pelvis consistent with perforated appendicitis Plan: 1. s/p IR drain placement into intraabdominal abscess today, fluid culture pending. Drain management per Dr. Johnson's orders 2. IV antibiotics 3. advance diet as tolerated 4. prn pain control 5. case management c/s for HHC Once the infection has resolved, then we will look to a possible interval appendectomy in 6 weeks. Okay to DC home from surgical standpoint when patient is afebrile x24 hours, home health care set up for drain management. Thank you. Please call with any questions. Subjective Date of service: 01/08/20 Narrative: Pt seen and examined. c/o pain near RLQ drain site. Tm 100.1 No n/v. Tolerating diet. Objective Vital Signs - 12hr 01/08/20 01/08/20 01/08/20 04:33 07:56 12:15 Temperature 100.1 F H 100.1 F H Pulse Rate 79 75 Pulse Rate [ Intra-Procedure ] Pulse Rate [ Post-Procedure] Pulse Rate [Pre 64 -Procedure] Respiratory 18 18 Rate Respiratory Rate [Intra- Procedure] Respiratory Rate [Post- Procedure] Respiratory 18 Rate [Pre- Procedure] Blood Pressure 123/60 125/76 Blood Pressure [Intra- Procedure] Blood Pressure [Post-Procedure ] Blood Pressure 107/60 [Pre-Procedure] O2 Sat by Pulse 99 98 Oximetry O2 Sat by Pulse Oximetry [ Intra-Procedure ] O2 Sat by Pulse Oximetry [Post -Procedure] O2 Sat by Pulse 98 Oximetry [Pre- Procedure] 01/08/20 01/08/20 01/08/20 12:20 12:25 12:30 Temperature Pulse Rate Pulse Rate [ 79 77 74 Intra-Procedure ] Pulse Rate [ Post-Procedure] Pulse Rate [Pre -Procedure] Respiratory 18 Rate Respiratory 17 17 10 L Rate [Intra- Procedure] Respiratory Rate [Post- Procedure] Respiratory Rate [Pre- Procedure] Blood Pressure Blood Pressure 115/55 108/60 112/70 [Intra- Procedure] Blood Pressure [Post-Procedure ] Blood Pressure [Pre-Procedure] O2 Sat by Pulse Oximetry O2 Sat by Pulse 96 97 99 Oximetry [ Intra-Procedure ] O2 Sat by Pulse Oximetry [Post -Procedure] O2 Sat by Pulse Oximetry [Pre- Procedure] 01/08/20 01/08/20 01/08/20 12:31 12:45 13:00 Temperature Pulse Rate Pulse Rate [ Intra-Procedure ] Pulse Rate [ 70 72 80 Post-Procedure] Pulse Rate [Pre -Procedure] Respiratory Rate Respiratory Rate [Intra- Procedure] Respiratory 18 17 16 Rate [Post- Procedure] Respiratory Rate [Pre- Procedure] Blood Pressure Blood Pressure [Intra- Procedure] Blood Pressure 121/68 114/68 120/70 [Post-Procedure ] Blood Pressure [Pre-Procedure] O2 Sat by Pulse Oximetry O2 Sat by Pulse Oximetry [ Intra-Procedure ] O2 Sat by Pulse 98 99 97 Oximetry [Post -Procedure] O2 Sat by Pulse Oximetry [Pre- Procedure] - General physical appearance Narrative Exam: Gen.: Awake, alert, oriented 3. No apparent distress ENT: Trachea midline. No lymphadenopathy. No scleral icterus or conjunctival pallor CV: S1, S2 present Respiratory: No audible wheezes Abdomen: Soft, nondistended, tenderness to palpation near right lower quadrant drain. The dressing is clean, dry, intact. There is seropurulent drainage in the bulb. No rebound, rigidity, guarding Extremities: No clubbing, cyanosis, edema - Labs 01/07/20 05:49 01/06/20 05:46
--- NOTE | 2020-01-08 16:29 | Progress Note ---
Assessment and Plan Assessment and plan: --Appendiceal abscess Current Visit: Yes Status: Acute Plan to address problem: Clear liquids s/p CT-guided placement of 10 Arabic drain, 80 mL's of purulent fluid aspirated and sent for laboratory analysis Per IR, follow fluid analysis and cultures Continue cefepime and metronidazole, IV fluids and pain medications 01/05/2020 CT abdomen and pelvis W0; Appendicitis without 5.3 cm periappendiceal collection concerning for abscess Small focus of gas seen along the superior aspect of collection related to micro rupture 01/07/2020; CT abdomen and pelvis with contrast; Persistent right lower quadrant fluid collection suspicious for the ana- appendiceal abscess. --Febrile illness: Current Visit: Yes Status: Acute Plan to address problem: Clear liquids Low-grade fever , continue antibiotics Follow cultures, antibiotics appendiceal abscess s/p status post drainage --Sepsis secondary to acute appendiceal abscess Current Visit: Yes Status: Acute Plan to address problem: Clear liquids Continue antibiotics follow cultures Supportive care --DVT prophylaxis; SCDs, Closely monitor and adjust management as needed Label Drier recommendations noted and appreciated Plan of care reviewed with patient and her nurse Disposition; follow surgery recommendations, follow cultures. DC when stable History Interval history: I have seen and examined the patient at bedside this afternoon Patient's chart, deviations, procedures done today reviewed Patient complains of mild pain Alert awake oriented Low-grade fever Vital signs reviewed Hospitalist Physical - Constitutional Vitals: Temp Pulse Resp BP Pulse Ox 99.5 F 73 18 89/62 96 01/08/20 14:58 01/08/20 14:58 01/08/20 14:58 01/08/20 14:58 01/08/20 16:11 General appearance: Present: mild distress, well-nourished - EENT Eyes: Present: PERRL, EOM intact - Neck Neck: Present: supple, normal ROM - Respiratory Respiratory effort: normal Respiratory: bilateral: diminished, negative: rales, rhonchi, wheezing - Cardiovascular Rhythm: regular Heart Sounds: Present: S1 & S2 - Extremities Extremities: no ischemia, No edema - Abdominal General gastrointestinal: soft, tender (No guarding no rigidity), hypoactive bowel sounds, other (Drain in place) - Integumentary Integumentary: Present: clear, warm - Psychiatric Psychiatric: appropriate mood/affect - Neurologic Neurologic: moves all extremities Results - Labs CBC & Chem 7: 01/07/20 05:49 01/06/20 05:46 Labs: Laboratory Last Values WBC 10.6 K/mm3 (4.5-11.0) 01/07/20 05:49 RBC 3.72 M/mm3 (3.65-5.03) 01/07/20 05:49 Hgb 10.9 gm/dl (10.1-14.3) 01/07/20 05:49 Hct 32.3 % (30.3-42.9) 01/07/20 05:49 MCV 87 fl (79-97) 01/07/20 05:49 MCH 29 pg (28-32) 01/07/20 05:49 MCHC 34 % (30-34) 01/07/20 05:49 RDW 13.6 % (13.2-15.2) 01/07/20 05:49 Plt Count 231 K/mm3 (140-440) 01/07/20 05:49 Lymph % (Auto) 6.1 % (13.4-35.0) L 01/07/20 05:49 Cotton % (Auto) 10.5 % (0.0-7.3) H 01/07/20 05:49 Eos % (Auto) 0.6 % (0.0-4.3) 01/07/20 05:49 Baso % (Auto) 0.3 % (0.0-1.8) 01/07/20 05:49 Lymph # 0.6 K/mm3 (1.2-5.4) L 01/07/20 05:49 Cotton # 1.1 K/mm3 (0.0-0.8) H 01/07/20 05:49 Eos # 0.1 K/mm3 (0.0-0.4) 01/07/20 05:49 Baso # 0.0 K/mm3 (0.0-0.1) 01/07/20 05:49 Seg Neutrophils % 82.5 % (40.0-70.0) H 01/07/20 05:49 Seg Neutrophils # 8.8 K/mm3 (1.8-7.7) H 01/07/20 05:49 PT 15.6 Sec. (12.2-14.9) H 01/08/20 08:29 INR 1.22 (0.87-1.13) H 01/08/20 08:29 APTT 32.0 Sec. (24.2-36.6) 01/08/20 08:29 Sodium 140 mmol/L (137-145) 01/06/20 05:46 Potassium 3.7 mmol/L (3.6-5.0) 01/06/20 05:46 Chloride 104.3 mmol/L (98-107) 01/06/20 05:46 Carbon Dioxide 21 mmol/L (22-30) L 01/06/20 05:46 Anion Gap 18 mmol/L 01/06/20 05:46 BUN 10 mg/dL (7-17) 01/06/20 05:46 Creatinine 1.0 mg/dL (0.6-1.2) 01/06/20 05:46 Estimated GFR > 60 ml/min 01/06/20 05:46 BUN/Creatinine Ratio 10 % 01/06/20 05:46 Glucose 94 mg/dL (65-100) 01/06/20 05:46 Calcium 8.5 mg/dL (8.4-10.2) 01/06/20 05:46 Total Bilirubin 0.50 mg/dL (0.1-1.2) 01/05/20 13:05 AST 19 units/L (5-40) 01/05/20 13:05 ALT 21 units/L (7-56) 01/05/20 13:05 Alkaline Phosphatase 146 units/L (35-129) H 01/05/20 13:05 Total Protein 7.9 g/dL (6.3-8.2) 01/05/20 13:05 Albumin 3.7 g/dL (3.9-5) L 01/05/20 13:05 Albumin/Globulin Ratio 0.9 % 01/05/20 13:05 Urine Color Tessy (Yellow) 01/05/20 Unknown Urine Turbidity Hazy (Clear) 01/05/20 Unknown Urine pH 6.0 (5.0-7.0) 01/05/20 Unknown Ur Specific [place] 1.026 (1.003-1.030) 01/05/20 Unknown Urine Protein >500 mg/dL (Negative) 01/05/20 Unknown Urine Glucose (UA) Neg mg/dL (Negative) 01/05/20 Unknown Urine Ketones Neg mg/dL (Negative) 01/05/20 Unknown Urine Blood Mod (Negative) 01/05/20 Unknown Urine Nitrite Neg (Negative) 01/05/20 Unknown Ur Reducing Substances Not Reportable 01/05/20 Unknown Urine Bilirubin Neg (Negative) 01/05/20 Unknown Urine Ictotest Not Reportable 01/05/20 Unknown Urine Urobilinogen 2.0 mg/dL (<2.0) 01/05/20 Unknown Ur Leukocyte Esterase Neg (Negative) 01/05/20 Unknown Urine WBC (Auto) 4.0 /HPF (0.0-6.0) 01/05/20 Unknown Urine RBC (Auto) 9.0 /HPF (0.0-6.0) 01/05/20 Unknown U Epithel Cells (Auto) 7.0 /HPF (0-13.0) 01/05/20 Unknown Hyaline Casts 1 /LPF 01/05/20 Unknown Granular Casts 12 /LPF 01/05/20 Unknown Urine Mucus 1+ /HPF 01/05/20 Unknown Urine HCG, Qual Negative (Negative) 01/05/20 Unknown Microbiology: Microbiology 01/06/20 Unknown Urine,Clean Catch Urine Culture - Preliminary NO GROWTH AFTER 24 HOURS 01/06/20 19:28 Peripheral/Venous Blood Culture - Preliminary NO GROWTH AFTER 24 HOURS 01/06/20 19:28 Peripheral/Venous Blood Culture - Preliminary NO GROWTH AFTER 24 HOURS Beltrán/IV: Voiding Method Toilet IV Catheter Type [Right INT / Saline Lock Antecubital] IV Catheter Type [Left Peripheral IV Antecubital] Active Medications - Current Medications Current Medications: Generic Name Dose Route Start Last Admin Trade Name Loiq PRN Reason Stop Dose Admin Acetaminophen 650 mg 01/06/20 17:05 01/07/20 15:25 Tylenol PO 650 mg Q4H PRN Administration Pain, Mild (1-3) Albuterol 2.5 mg 01/05/20 16:00 Proventil IH Q4HRT PRN Shortness Of Breath Hydromorphone HCl 0.25 mg 01/05/20 15:00 01/07/20 15:30 Dilaudid IV 0.25 mg Q8HR PRN Administration Pain , Severe (7-10) Sodium Chloride 1,000 mls @ 125 mls/hr 01/05/20 15:00 01/08/20 10:11 Nacl 0.9% 1000 Ml IV 125 mls/hr DIRECT KACEY Administration Cefepime HCl 2 gm in 100 mls @ 200 mls/hr 01/05/20 22:00 01/08/20 13:08 Cefepime/Ns 2 Gm/100 Ml IV 200 mls/hr Q8HR KACEY Administration Protocol Metronidazole 500 mg in 100 mls @ 100 mls/hr 01/05/20 22:00 01/08/20 13:39 Flagyl 500 Mg/100 Ml IV 100 mls/hr Q8HR KACEY Administration Protocol Morphine Sulfate 2 mg 01/05/20 14:20 01/06/20 14:39 Morphine IV 2 mg Q4H PRN Administration Pain, Moderate (4-6) Ondansetron HCl 4 mg 01/05/20 15:00 01/07/20 15:25 Zofran IV 4 mg Q8HR PRN Administration Nausea And Vomiting Sodium Chloride 10 ml 01/05/20 22:00 01/08/20 12:41 Sodium Chloride Flush Syringe 10 Ml IV Not Given BID KACEY Sodium Chloride 10 ml 01/05/20 15:00 Sodium Chloride Flush Syringe 10 Ml IV PRN PRN LINE FLUSH Nutrition/Malnutrition Assess - Dietary Evaluation Nutrition/Malnutrition Findings: Nutrition Notes Start: 01/06/20 10:31 Freq: Status: Active Protocol: Document 01/06/20 10:31 AB (Rec: 01/06/20 10:32 AB [email or web address]) Co-Sign 01/06/20 10:31 NHALL Nutrition Notes Need for Assessment generated from: padded products finisher Initial or Follow up Brief Note Subjective/Other Information Pt screened for skin risk however, Dez score is 21. Will assess upon further consult or LOS
[2020-01-08] MEDS: MORPHINE 2 MG/1 ML INJ IV PRN (20:43)
[2020-01-09] MEDS: SODIUM CHLORIDE 0.9% 1000 ML 1,000 ML IV SCH (00:54)
[2020-01-09] MEDS: metroNIDAZOLE/NS 500 MG/100 ML 500 MG/100 ML BAG IV SCH (05:43)
[2020-01-09] MEDS: CEFEPIME/NS 2 GM/100 ML 2 GM/100 ML BAG IV SCH (06:55)
[2020-01-09 07:40] LABS: Blood Urea Nitrogen 11 mg/dL (7-17); Calcium 8.7 mg/dL (8.4-10.2); Hemolysis Index 3
[2020-01-09 08:09] LABS: BUN/Creatinine Ratio 16
--- NOTE | 2020-01-09 09:54 | Progress Note ---
Assessment and Plan Assessment and plan: 24 yo F, otherwise healthy, presented to the emergency department due to significant right lower quadrant abdominal pain. Patient was admitted with diagnosis of sepsis and appendiceal abscess. CT scan evaluation showed appendicitis with probable associated abscess. General surgery and IR was consulted. Patient appears to have perforated appendicitis. The patient received IV antibiotics and IR performed aspiration of abscess with 80 mL's of purulent fluid aspirated and sent for laboratory analysis. Surgery felt that patient could discharge home if remained afebrile which she has over the past 48 hours and have follow-up with possible interval appendectomy in 6 weeks. History Interval history: No new issues overnight. Hospitalist Physical - Constitutional Vitals: Temp Pulse Resp BP Pulse Ox 98.6 F 58 L 16 103/63 99 01/09/20 07:46 01/09/20 07:46 01/09/20 07:46 01/09/20 07:46 01/09/20 07:46 General appearance: Present: mild distress, well-nourished - EENT Eyes: Present: PERRL, EOM intact ENT: hearing intact, clear oral mucosa, dentition normal - Neck Neck: Present: supple, normal ROM - Respiratory Respiratory effort: normal Respiratory: bilateral: CTA - Cardiovascular Rhythm: regular Heart Sounds: Present: S1 & S2. Absent: gallop, rub - Extremities Extremities: no ischemia, No edema, Full ROM - Abdominal General gastrointestinal: soft, non-tender, non-distended, normal bowel sounds - Integumentary Integumentary: Present: clear, warm, dry - Neurologic Neurologic: CNII-XII intact, moves all extremities Results - Labs CBC & Chem 7: 01/07/20 05:49 01/09/20 06:43 Labs: Laboratory Last Values WBC 10.6 K/mm3 (4.5-11.0) 01/07/20 05:49 RBC 3.72 M/mm3 (3.65-5.03) 01/07/20 05:49 Hgb 10.9 gm/dl (10.1-14.3) 01/07/20 05:49 Hct 32.3 % (30.3-42.9) 01/07/20 05:49 MCV 87 fl (79-97) 01/07/20 05:49 MCH 29 pg (28-32) 01/07/20 05:49 MCHC 34 % (30-34) 01/07/20 05:49 RDW 13.6 % (13.2-15.2) 01/07/20 05:49 Plt Count 231 K/mm3 (140-440) 01/07/20 05:49 Lymph % (Auto) 6.1 % (13.4-35.0) L 01/07/20 05:49 [place] % (Auto) 10.5 % (0.0-7.3) H 01/07/20 05:49 Eos % (Auto) 0.6 % (0.0-4.3) 01/07/20 05:49 Baso % (Auto) 0.3 % (0.0-1.8) 01/07/20 05:49 Lymph # 0.6 K/mm3 (1.2-5.4) L 01/07/20 05:49 [place] # 1.1 K/mm3 (0.0-0.8) H 01/07/20 05:49 Eos # 0.1 K/mm3 (0.0-0.4) 01/07/20 05:49 Baso # 0.0 K/mm3 (0.0-0.1) 01/07/20 05:49 Seg Neutrophils % 82.5 % (40.0-70.0) H 01/07/20 05:49 Seg Neutrophils # 8.8 K/mm3 (1.8-7.7) H 01/07/20 05:49 PT 15.6 Sec. (12.2-14.9) H 01/08/20 08:29 INR 1.22 (0.87-1.13) H 01/08/20 08:29 APTT 32.0 Sec. (24.2-36.6) 01/08/20 08:29 Sodium 141 mmol/L (137-145) 01/09/20 06:43 Potassium 3.8 mmol/L (3.6-5.0) 01/09/20 06:43 Chloride 107.0 mmol/L (98-107) 01/09/20 06:43 Carbon Dioxide 18 mmol/L (22-30) L 01/09/20 06:43 Anion Gap 20 mmol/L 01/09/20 06:43 BUN 11 mg/dL (7-17) 01/09/20 06:43 Creatinine 0.7 mg/dL (0.6-1.2) 01/09/20 06:43 Estimated GFR > 60 ml/min 01/09/20 06:43 BUN/Creatinine Ratio 16 % 01/09/20 06:43 Glucose 76 mg/dL (65-100) 01/09/20 06:43 Calcium 8.7 mg/dL (8.4-10.2) 01/09/20 06:43 Magnesium 2.00 mg/dL (1.7-2.3) 01/09/20 06:43 Total Bilirubin 0.50 mg/dL (0.1-1.2) 01/05/20 13:05 AST 19 units/L (5-40) 01/05/20 13:05 ALT 21 units/L (7-56) 01/05/20 13:05 Alkaline Phosphatase 146 units/L (35-129) H 01/05/20 13:05 Total Protein 7.9 g/dL (6.3-8.2) 01/05/20 13:05 Albumin 3.7 g/dL (3.9-5) L 01/05/20 13:05 Albumin/Globulin Ratio 0.9 % 01/05/20 13:05 Urine Color Tessy (Yellow) 01/05/20 Unknown Urine Turbidity Hazy (Clear) 01/05/20 Unknown Urine pH 6.0 (5.0-7.0) 01/05/20 Unknown Ur Specific [place] 1.026 (1.003-1.030) 01/05/20 Unknown Urine Protein >500 mg/dL (Negative) 01/05/20 Unknown Urine Glucose (UA) Neg mg/dL (Negative) 01/05/20 Unknown Urine Ketones Neg mg/dL (Negative) 01/05/20 Unknown Urine Blood Mod (Negative) 01/05/20 Unknown Urine Nitrite Neg (Negative) 01/05/20 Unknown Ur Reducing Substances Not Reportable 01/05/20 Unknown Urine Bilirubin Neg (Negative) 01/05/20 Unknown Urine Ictotest Not Reportable 01/05/20 Unknown Urine Urobilinogen 2.0 mg/dL (<2.0) 01/05/20 Unknown Ur Leukocyte Esterase Neg (Negative) 01/05/20 Unknown Urine WBC (Auto) 4.0 /HPF (0.0-6.0) 01/05/20 Unknown Urine RBC (Auto) 9.0 /HPF (0.0-6.0) 01/05/20 Unknown U Epithel Cells (Auto) 7.0 /HPF (0-13.0) 01/05/20 Unknown Hyaline Casts 1 /LPF 01/05/20 Unknown Granular Casts 12 /LPF 01/05/20 Unknown Urine Mucus 1+ /HPF 01/05/20 Unknown Urine HCG, Qual Negative (Negative) 01/05/20 Unknown Microbiology: Microbiology 01/06/20 19:28 Peripheral/Venous Blood Culture - Preliminary NO GROWTH AFTER 48 HOURS 01/06/20 19:28 Peripheral/Venous Blood Culture - Preliminary NO GROWTH AFTER 48 HOURS 01/06/20 Unknown Urine,Clean Catch Urine Culture - Preliminary NO GROWTH AFTER 24 HOURS [place]/IV: Voiding Method Toilet IV Catheter Type [Right INT / Saline Lock Antecubital] IV Catheter Type [Left Peripheral IV Antecubital] Active Medications - Current Medications Current Medications: Generic Name Dose Route Start Last Admin Trade Name Freq PRN Reason Stop Dose Admin Acetaminophen 650 mg 01/06/20 17:05 01/07/20 15:25 Tylenol PO 650 mg Q4H PRN Administration Pain, Mild (1-3) Albuterol 2.5 mg 01/05/20 16:00 Proventil IH Q4HRT PRN Shortness Of Breath Hydromorphone HCl 0.25 mg 01/05/20 15:00 01/07/20 15:30 Dilaudid IV 0.25 mg Q8HR PRN Administration Pain , Severe (7-10) Sodium Chloride 1,000 mls @ 125 mls/hr 01/05/20 15:00 01/09/20 00:54 Nacl 0.9% 1000 Ml IV 125 mls/hr DIRECT KACEY Administration Cefepime HCl 2 gm in 100 mls @ 200 mls/hr 01/05/20 22:00 01/09/20 06:55 Cefepime/Ns 2 Gm/100 Ml IV 200 mls/hr Q8HR KACEY Administration Protocol Metronidazole 500 mg in 100 mls @ 100 mls/hr 01/05/20 22:00 01/09/20 05:43 Flagyl 500 Mg/100 Ml IV 100 mls/hr Q8HR KACEY Administration Protocol Morphine Sulfate 2 mg 01/05/20 14:20 01/08/20 20:43 Morphine IV 2 mg Q4H PRN Administration Pain, Moderate (4-6) Ondansetron HCl 4 mg 01/05/20 15:00 01/07/20 15:25 Zofran IV 4 mg Q8HR PRN Administration Nausea And Vomiting Sodium Chloride 10 ml 01/05/20 22:00 01/08/20 22:35 Sodium Chloride Flush Syringe 10 Ml IV Not Given BID KACEY Sodium Chloride 10 ml 01/05/20 15:00 Sodium Chloride Flush Syringe 10 Ml IV PRN PRN LINE FLUSH Nutrition/Malnutrition Assess - Dietary Evaluation Nutrition/Malnutrition Findings: Nutrition Notes Start: 01/06/20 10:31 Freq: Status: Active Protocol: Document 01/06/20 10:31 AB (Rec: 01/06/20 10:32 AB [email or web address]) Co-Sign 01/06/20 10:31 NHALL Nutrition Notes 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 Will assess upon further consult or LOS
--- NOTE | 2020-01-09 10:02 | Discharge Summary ---
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 Patient was admitted with diagnosis of sepsis and appendiceal abscess. CT scan evaluation showed appendicitis with probable associated abscess. General surgery and IR was consulted. Patient appears to have perforated appendicitis. The patient received IV antibiotics and IR performed aspiration of abscess with 80 mL's of purulent fluid aspirated and sent for laboratory analysis. Surgery felt that patient could discharge home if remained afebrile which she has over the past 48 hours and have follow-up with possible interval appendectomy in 6 weeks. Disposition: DC-01 TO HOME OR SELFCARE Time spent for discharge: 35 - Discharge Diagnoses (1) Sepsis Status: Acute (2) Appendicitis with abscess Status: Acute Core Measure Documentation - Palliative Care Palliative Care/ Comfort Measures: Not Applicable - Core Measures Any of the following diagnoses?: none Exam - Constitutional Vitals: Temp Pulse Resp BP Pulse Ox 98.6 F 58 L 16 103/63 99 01/09/20 07:46 01/09/20 07:46 01/09/20 07:46 01/09/20 07:46 01/09/20 07:46 General appearance: Present: no acute distress, well-nourished - EENT Eyes: Present: PERRL ENT: hearing intact, clear oral mucosa - Neck Neck: Present: supple, normal ROM - Respiratory Respiratory effort: normal Respiratory: bilateral: CTA - Cardiovascular Heart Sounds: Present: S1 & S2. Absent: rub, click - Extremities Extremities: pulses symmetrical, No edema Peripheral Pulses: within normal limits - Abdominal General gastrointestinal: Present: soft, non-tender, non-distended, normal bowel sounds Female genitourinary: Present: normal - Integumentary Integumentary: Present: clear, warm, dry - Musculoskeletal Musculoskeletal: gait normal, strength equal bilaterally - Psychiatric Psychiatric: appropriate mood/affect, intact judgment & insight - Neurologic Neurologic: CNII-XII intact, moves all extremities Plan Activity: advance as tolerated Weight Bearing Status: Weight Bear as Tolerated Diet: regular Special Instructions: home health RN Follow up with: PRIMARY CARE, [Primary Care Provider] - 3-5 Days LATANYA MCDONALD MD [Staff Physician] - 7 Days GAIL BRANHAM DO [Staff Physician] - 7 Days
--- NOTE | 2020-01-09 10:57 | Progress Note ---
Assessment and Plan - Patient Problems (1) Appendicitis with abscess Current Visit: Yes Status: Acute Plan to address problem: Pt stable. s/p percutaneous drain placement - 01/07. White count has normalized. Okay from surgery perspective for discharge if she is able to tolerate a diet. Recommendations: 1. Continue with oral antibiotics to complete a two-week course. 2. Follow-up in general surgery clinic in 10 to 14 days 3. Record daily drain output Please call with questions Subjective Date of service: 01/09/20 Patient Reports: Positive: no new complaints Objective Vital Signs - 12hr 01/08/20 01/09/20 01/09/20 23:22 04:47 07:46 Temperature 99.3 F 98.0 F 98.6 F Pulse Rate 78 58 L 58 L Respiratory 18 18 16 Rate Blood Pressure 115/66 111/55 103/63 O2 Sat by Pulse 97 95 99 Oximetry - General physical appearance no distress, no pain - Respiratory normal expansion, normal respiratory effort - Abdomen other (drain with serosang drainage) - Psychiatric oriented to time, oriented to person, oriented to place, speech is normal, memory intact - Labs 01/07/20 05:49 01/09/20 06:43 Diabetes panel 01/09/20 Range/Units 06:43 Sodium 141 (137-145) mmol/L Potassium 3.8 (3.6-5.0) mmol/L Chloride 107.0 (98-107) mmol/L Carbon Dioxide 18 L (22-30) mmol/L BUN 11 (7-17) mg/dL Creatinine 0.7 (0.6-1.2) mg/dL Glucose 76 (65-100) mg/dL Calcium 8.7 (8.4-10.2) mg/dL Calcium panel 01/09/20 Range/Units 06:43 Calcium 8.7 (8.4-10.2) mg/dL Pituitary panel 01/09/20 Range/Units 06:43 Sodium 141 (137-145) mmol/L Potassium 3.8 (3.6-5.0) mmol/L Chloride 107.0 (98-107) mmol/L Carbon Dioxide 18 L (22-30) mmol/L BUN 11 (7-17) mg/dL Creatinine 0.7 (0.6-1.2) mg/dL Glucose 76 (65-100) mg/dL Calcium 8.7 (8.4-10.2) mg/dL Adrenal panel 01/09/20 Range/Units 06:43 Sodium 141 (137-145) mmol/L Potassium 3.8 (3.6-5.0) mmol/L Chloride 107.0 (98-107) mmol/L Carbon Dioxide 18 L (22-30) mmol/L BUN 11 (7-17) mg/dL Creatinine 0.7 (0.6-1.2) mg/dL Glucose 76 (65-100) mg/dL Calcium 8.7 (8.4-10.2) mg/dL
[2020-01-09 11:44] VITALS: BP 102/65
== END 2020-01-09 17:25 | disposition home health service (06) | DRG 871 ==
LOC: ED 11:14 → 3B-SURG 14:20
PROVIDERS: ADMIT Internal Medicine; ATTEND Hospitalist
PROC: 0W9J3ZX Drainage of Pelvic Cavity, Percutaneous Approach, Diagnostic (ICD-10-PCS; principal; 2020-01-08)
DX: A41.9 Sepsis, unspecified organism (principal); K35.33 Acute appendicitis with perforation, localized peritonitis, and gangrene, with abscess
CPT/HCPCS: 10160; 36415; 74176; 74177; 77012; 80048; 80053; 81001; 81025; 83735; 85025; 85610; 85730; 87040; 87086; 87116; 96365; 96366; 96374; 96375; G0378; J0692; J1170; J2250; J2270; J2405; J2543; J3010; J7030; Q9967